=== PATIENT | female | born 1970 | race Caucasian/White ===

== ENCOUNTER 2016-12-21 05:58 | Emergency (ER) | payer OTHER ==
[~2016-12-21] VITALS: Ht 154.9 cm; Wt 78.5 kg
[~2016-12-21 05:58] MED LIST: BACITRACIN1 PKT TOP; BAYER MIGRAINE1 EACH PO; CLINDAMYCIN HC300 MG PO; DOXYCYCLINE HY100 MG PO; ESTRADIOL0.5 MG PO; IBUPROFEN800 MG PO; IMITREX25 MG PO; KONDREMUL2.5 ML/5 M PO; LEVAQUIN750 MG PO; NORCO 5-325 TA1 EACH PO; PENICILLIN V P500 MG PO; PERCOCET 5-3251 EACH PO; PROMETHAZINE HC25 M1 PO; SENNA8.6 MG PO; VICODIN 5-5001 EACH PO
== END 2016-12-21 06:58 | disposition home or self-care (01) ==
LOC: ED 05:58
DX: B34.9 Viral infection, unspecified (principal); F17.200 Nicotine dependence, unspecified, uncomplicated; Z87.01 Personal history of pneumonia (recurrent); Z90.49 Acquired absence of other specified parts of digestive tract; Z90.710 Acquired absence of both cervix and uterus; Z88.1 Allergy status to other antibiotic agents; Z88.5 Allergy status to narcotic agent; Z88.2 Allergy status to sulfonamides
CPT/HCPCS: 71020; 81001; 99283